=== PATIENT | male | born 1975 | race Caucasian/White ===

== ENCOUNTER 2020-03-30 09:31 | Outpatient (CLI) | payer BC, SELFPAY ==
--- NOTE | 2020-03-30 | EST_ITS ---
Patient Info Name: Nahum Douglass Age: 44 years : 1975 Gender: Male Ht: 74 in Wt: 350 lbs BSA: 2.95 m2 Exam Date: 03/30/2020 11:11 AM Exam Location: [facility] Stress Patient Status: Outpatient Admit Date: 03/30/2020 Staff Ordering Physician: Bita, Maksim Hahn M.D. Attending Provider: Bita, Maksim Hahn M.D. Exercise Technologist: Noa Ma RDCS Exercise Physician: Camden Goldman DO Exam Type: CA stress test treadmill Study Info Indications R06.09 - Other forms of dyspnea A treadmill exercise stress test was performed. Summary 1. 1. Negative Jonnathan exercise stress test for ischemic ST changes by ECG criteria. However, patient achieved only 77% MPHR for age group which reduces sensitivity of the test. 2. 1. Reduced functional capacity, achieving 7 METs of workload. 3. 3. Baseline hypertension with hypertensive response to exercise. 4. 4. Appropriate HR response to exercise. 5. 5. Appropriate HR recovery at 1 minute post exercise. 6. 6. No imaging with stress testing. 7. 7. Patient informed of the above results. Protocol: Jonnathan Stress ECG Details Stage: REST Duration (min): 5 min : 41 sec Speed (mph): 0.0 Grade (%): 0 HR (bpm): 69 SBP (mmHg): 146 DBP (mmHg): 90 METS: --- Stage: REST Duration (min): 14 min : 51 sec Speed (mph): 0.0 Grade (%): 0 HR (bpm): 72 SBP (mmHg): 146 DBP (mmHg): 90 METS: --- Stage: STAGE 1 Duration (min): 1 min : 0 sec Speed (mph): 1.7 Grade (%): 10 HR (bpm): 93 SBP (mmHg): 146 DBP (mmHg): 90 METS: --- Stage: STAGE 1 Duration (min): 2 min : 0 sec Speed (mph): 1.7 Grade (%): 10 HR (bpm): 104 SBP (mmHg): 146 DBP (mmHg): 90 METS: --- Stage: STAGE 1 Duration (min): 3 min : 0 sec Speed (mph): 1.7 Grade (%): 10 HR (bpm): 113 SBP (mmHg): 179 DBP (mmHg): 59 METS: --- Stage: STAGE 2 Duration (min): 1 min : 0 sec Speed (mph): 2.5 Grade (%): 12 HR (bpm): 122 SBP (mmHg): 179 DBP (mmHg): 59 METS: --- Stage: STAGE 2 Duration (min): 2 min : 0 sec Speed (mph): 2.5 Grade (%): 12 HR (bpm): 133 SBP (mmHg): 210 DBP (mmHg): 110 METS: --- Stage: STAGE 2 Duration (min): 2 min : 25 sec Speed (mph): 2.5 Grade (%): 12 HR (bpm): 137 SBP (mmHg): 210 DBP (mmHg): 110 METS: --- Stage: RECOVERY Duration (min): 0 min : 34 sec Speed (mph): 0.0 Grade (%): 0 HR (bpm): 134 SBP (mmHg): 210 DBP (mmHg): 110 METS: --- Stage: RECOVERY Duration (min): 1 min : 34 sec Speed (mph): 0.0 Grade (%): 0 HR (bpm): 120 SBP (mmHg): 200 DBP (mmHg): 82 METS: --- Stage: RECOVERY Duration (min): 2 min : 34 sec Speed (mph): 0.0 Grade (%): 0 HR (bpm): 103 SBP (mmHg): 200 DBP (mmHg): 82 METS: --- Stage: RECOVERY Duration (min): 3 min : 34 sec Speed (mph): 0.0 Grade (%): 0 HR (bpm)
--- NOTE | ~2020-03-30 | XR_ITS ---
EXAMINATION: XR chest 2V DATE: 03/30/2020 09:54 INDICATION: Dyspnea on exertion. TECHNIQUE: Frontal and lateral views of the chest were obtained on 3 radiographs. COMPARISON: None. FINDINGS: The chest demonstrates clear lungs without pneumonia, pleural effusion, or pneumothorax. Th e heart size is normal. IMPRESSION: 1. No acute cardiopulmonary disease. Reviewed, dictated and finalized at location A.
[2020-03-30 12:34] LABS: Alanine Aminotransferase 57 U/L (4-50); Albumin Level 4.4 g/dL (3.5-5.1); Alkaline Phosphatase 50 U/L (38-126); Aspartate Amino Transferase 43 U/L (17-59); Bilirubin,Total 0.6 mg/dL (0.2-1.3); Blood Urea Nitrogen 15 mg/dL (9-20); Calcium 9.3 mg/dL (8.4-10.2); Carbon Dioxide 26 mmol/L (22-30); Chloride 104 mmol/L (98-107); Cholesterol 175 mg/dL (0-200); Estimated Glomerular Filt Rate > 60; Glucose 105 mg/dL (75-110); HDL Direct 43 mg/dL; Sodium 141 mmol/L (137-145); Triglycerides 137 mg/dL (<150)
[2020-03-30 12:46] LABS: LDL Cholesterol Direct 118 mg/dL
== END 2020-03-30 09:32 | disposition home or self-care (01) ==
PROVIDERS: PCP Family Medicine; Visit Provider Family Medicine
DX: R06.09 Other forms of dyspnea (principal)
CPT/HCPCS: 36415; 71046; 80053; 80061; 93017

== ENCOUNTER 2020-04-16 14:04 | Outpatient (CLI) | payer BC, SELFPAY ==
--- NOTE | 2020-04-16 | ECHO_ITS ---
Patient Info Name: Nahum Douglass Age: 44 years : 1975 Gender: Male Ht: 74 in Wt: 350 lbs BSA: 2.95 m2 HR: 67 bpm BP: 150 / 102 mmHg Heart Rhythm: Sinus Rhythm Technical Quality: Good Exam Date: 04/16/2020 2:50 PM Exam Location: [facility]monary Patient Status: Outpatient Admit Date: 04/16/2020 Staff Ordering Physician: Christine, Isela Ward CNP Supervisor Fertilizer Processing: Noa Ma RDCS Attending Provider: Christine, Isela Ward CNP Referring Physician: Christine HU; Exam Type: CA echo doppler color flow Study Info Indications R06.02 - Shortness of breath Complete two-dimensional, color flow and Doppler transthoracic echocardiogram is performed. Summary 1. Left ventricular systolic function is normal, estimated at 65-70%. 2. There is mildly increased left ventricular wall thickness. 3. The left ventricular diastolic function is grade I diastolic dysfunction. 4. There is trace mitral valve regurgitation. 5. There is mild tricuspid valve regurgitation. 6. Mild pulmonary hypertension, estimated pulmonary arterial systolic pressure is 37 mmHg. Left Ventricle Left ventricular chamber dimension is normal. Left ventricular systolic function is normal, estimated at 65-70%. There is mildly increased left ventricular wall thickness. The left ventricular diastolic function is grade I diastolic dysfunction. Right Ventricle Right ventricular chamber dimension is normal. Right ventricular systolic function is normal. Left Atria Left atrial chamber dimension is normal. Right Atria Right atrial chamber dimension is normal. Aortic Valve The aortic valve is probable trileaflet. There is no aortic valve stenosis. There is trace aortic valve regurgitation. Pulmonic Valve The pulmonic valve is not well visualized. There is trace pulmonic regurgitation. Mitral Valve The mitral valve has thickened leaflets. There is trace mitral valve regurgitation. Tricuspid Valve The tricuspid valve leaflets are normal. There is mild tricuspid valve regurgitation. Mild pulmonary hypertension, estimated pulmonary arterial systolic pressure is 37 mmHg. Pericardium/Pleural The pericardium appears normal. There is no pericardial effusion. Inferior Vena Cava Normal inferior vena cava with <50% collapse upon inspiration consistent with normal right atrial pressure, 5 mmHg. Aorta The aortic root size at the sinus of Valsalva is normal. Left Ventricular Outflow Tract Name Value Normal LVOT 2D LVOT Diameter 2.1 cm LVOT Doppler LVOT Peak Gradient 9 mmHg LVOT Mean Gradient 5 mmHg LVOT VTI 30 cm LVOT VTI/AV VTI Ratio 1.0 LVOT Stroke Volume 101 ml LVOT CO 6.8 l/min LVOT CI 2.3 l/min/m2 Pulmonic Valve Name Value Normal
== END 2020-04-16 14:05 | disposition home or self-care (01) ==
PROVIDERS: PCP Family Medicine; Visit Provider Nurse Practitioner Family
DX: I08.1 Rheumatic disorders of both mitral and tricuspid valves (principal)
CPT/HCPCS: 93306

== ENCOUNTER 2021-04-10 15:22 | Emergency (ER) | payer BC, SELFPAY ==
[2021-04-10] VITALS (17 sets, daily range): BP systolic 132–178; BP diastolic 70–122; PULSE 74–87; RESP 10–26; TEMP 36.1–37; O2SAT 94–98
--- NOTE | ~2021-04-10 | CT_ITS ---
EXAMINATION: CTA chest PE protocol EXAM DATE: 04/10/2021 20:27 INDICATION: SOB, CP, elevated dimer. TECHNIQUE: Spiral CTA of the chest (pulmonary arteries) was performed with 100 cc Omnipaque 350 intr avenous contrast injection. Images were acquired during the pulmonary arterial phase. Coronal maxi mum intensity projection 3D-reconstructions were created by the technologist on dedicated workstation . Axial, coronal and sagittal reformatted images were reviewed. The dose-length product (DLP) for t his examination was 965.11 mGy-cm. The exposure was tailored according to patient size (auto mA exp osure control), and iterative reconstruction (ASIR) was used as additional dose reduction technique. There is no prior study for comparison. FINDINGS: The aorta has higher density than the pulmonary arteries indicating that the triggering diana us likely had adequate density but then there was drop in enhancement of the pulmonary arteries at sc an time for reasons unclear. There are no pulmonary emboli in the 1st through 3rd order (central and interlobar) pulmonary arteries. Suboptimal opacification and some loss of attenuation in the segmenta l pulmonary arteries from respiratory motion, not confidently evaluated. No intraluminal filling defe cts identified. No thoracic aortic dissection. There is a 5 mm left upper lobe nodule on axial image 25. There are no pleural or pericardial effusio ns. Tracheobronchial tree is patent. There is no mediastinal, hilar or axillary lymphadenopathy. There is no pneumothorax. Heart normal in size. No evidence of coronary arterial calcification. There is hepatic steatosis. There is right adrenal gland lesion measuring 1.2 cm, probably an adeno ma. There is mild thoracic spondylosis without osteoblastic or osteolytic lesions identified. IMPRESSION: 1. No central pulmonary emboli. Suboptimal segmental evaluation. If there is high clinical suspicion of pulmonary embolism, options include administering 2nd dose of contrast which may or may not impro ve segmental evaluation, or obtaining follow-up nuclear medicine perfusion scan. 2. Small left upper lobe pleural-based nodule most likely granuloma. Consider 6-12 month follow-up c hest CT without contrast. 3. Hepatic steatosis. Reviewed, dictated and finalized at location A. IMPRESSION: 1. No central pulmonary emboli. Suboptimal segmental evaluation. If there is h igh clinical suspicion of pulmonary embolism, options include administering 2nd dose of contrast which may or may not improve segmental evaluation, or obtaini ng follow-up nuclear medicine perfusion scan. 2. Small left upper lobe pleural-based nodule most likely granuloma. Consider 6-12 month follow-up chest CT without contrast. 3. Hepatic steatosis.
--- NOTE | ~2021-04-10 | XR_ITS ---
EXAMINATION: XR chest 2V DATE: 04/10/2021 16:32 INDICATION: Chest pain and shortness of breath TECHNIQUE: PA and lateral views of the chest are obtained. COMPARISON: 03/30/2020 FINDINGS: The lungs are free of acute opacities. There is no pleural effusion or pneumothorax. The ca rdiomediastinal silhouette is normal. The visualized bones and soft tissues are unremarkable. IMPRESSION: 1. No acute cardiopulmonary abnormality. Reviewed, dictated and finalized at location B.
--- NOTE | 2021-04-10 15:23 | ECG_ITS ---
Measurements Intervals [place] Rate: 80 P: 22 OR: 132 QRS: 44 QRSD: 90 T: 45 QT: 372 QTc: 430 Interpretive Statements SINUS RHYTHM EARLY PRECORDIAL R/S TRANSITION NONSPECIFIC T-WAVE ABNORMALITY- INFERIOR LEADS BASELINE ARTIFACT- III, AVF BORDERLINE ECG Electronically Signed On 04-10-2021 15:31:14 CDT by Camden Goldman D.O.
[2021-04-10 16:03] LABS: Basophils Absolute Auto 0.1 K/mm3 (0.0-0.1); Basophils Percent Auto 0.7 % (0.2-1.2); Eosinophils Absolute Auto 0.2 K/mm3 (0-0.3); Eosinophils Percent Auto 2.2 % (0-4.4); Hematocrit 43.9 % (42.0-52.0); Hemoglobin 14.7 g/dL (14.0-18.0); Immature Granulocyte Absolute 0.03 K/mm3 (0.00-0.031); Immature Granulocyte Percent A 0.4 % (0-0.5); Lymphocytes Absolute Auto 1.98 K/mm3 (0.9-3.2); Lymphocytes Percent Auto 26.9 % (18.3-44.2); Mean Corpuscular HGB Conc 33.5 g/dl (32-36); Mean Corpuscular Hemoglobin 29.9 pg (26-34); Mean Corpuscular Volume 89.2 fl (80-100); Mean Platelet Volume 10.2 fl (7.4-10.4); Monocytes Absolute Auto 0.5 K/mm3 (0.1-0.6); Monocytes Percent Auto 7.1 % (2.6-8.5); Neutrophils Absolute Auto 4.6 K/mm3 (1.3-6.7); Neutrophils Percent Auto 62.7 % (45.5-73.1); Platelet Count Result 307 k/mm3 (150-375); Red Blood Count 4.92 M/mm3 (4.6-6.20); Red Cell Distribution Width 13.7 % (11.5-14.5); White Blood Count 7.4 K/mm3 (4.5-10.0)
[2021-04-10 16:12] LABS: INR 0.9; Prothrombin Time 12.2 Seconds (11.1-14.7)
[2021-04-10 16:14] LABS: Anion Gap 13 mmol/L (8-16); Blood Urea Nitrogen 12 mg/dL (9-20); Calcium 9.9 mg/dL (8.4-10.2); Carbon Dioxide 28 mmol/L (22-30); Chloride 98 mmol/L (98-107); Estimated CRCL calculation 142 ml/min; Estimated Glomerular Filt Rate > 60; Glucose 119 mg/dL (65-110); Potassium 3.3 mmol/L (3.4-5.0); Sodium 139 mmol/L (137-145)
[2021-04-10 16:25] LABS: Troponin I < 0.012 ng/mL (0.000-0.034)
--- NOTE | 2021-04-10 18:35 | PC.NURSE ---
TYRONE Salcedo at bedside
[2021-04-10 18:41] LABS: Troponin I < 0.012 ng/mL (0.000-0.034)
--- NOTE | 2021-04-10 18:42 | ED.CHESTPAIN ---
HPI - Chest Pain General Chief Complaint: Chest Pain Stated Complaint: cp Time Seen by Provider: 04/10/21 18:26 Source: patient Mode of arrival: ambulatory Limitations: no limitations History of Present Illness HPI narrative: This is a 45 year old male that presents to the ER for an episode of chest pain today. Reports he was driving in the car. He started to feel shaky. This was followed by a pressure on his chest. Associated with shortness of breath and nausea. He called EMS. Was given aspirin and a dose of nitro. His discomfort subsided after about an hour. Denies any current symptoms. Denies lower extremity edema. Related Data Home Medications Medication Instructions Recorded Confirmed amlodipine DAILY 04/10/21 fenofibrate mg DAILY 04/10/21 folic acid DAILY 04/10/21 lansoprazole DAILY 04/10/21 losartan-hydrochlorothiazide DAILY 04/10/21 meloxicam DAILY 04/10/21 methotrexate sodium WEEKLY 04/10/21 Allergies Allergy/AdvReac Type Severity Reaction Status Date / Time No Known Allergies Allergy Verified 04/10/21 18:41 Review of Systems Review of Systems: Narrative: CONSTITUTIONAL: Denies fever CARDIOVASCULAR: Reports chest pain. Denies palpitations, or edema. RESPIRATORY: Reports dyspnea. GASTROINTESTINAL: Reports nausea All systems reviewed & are unremarkable except as noted in HPI and below PMFSH Past Medical History Medical History (Updated 04/10/21 @ 21:15 by Denisse Zhang PA-C) History of hyperlipidemia History of hypertension History of rheumatoid arthritis Exam Narrative: Exam Narrative: GENERAL: Well-appearing, obese, and in no acute distress. HEAD: Normocephalic, atraumatic. EYES: EOMI. ENT: Nares clear, no rhinorrhea or epistaxis. Mucous membranes moist. Oropharynx without tonsillar hypertrophy exudate or other lesions. Bilateral TMs pearly pickens non-bulging NECK: Supple. No adenopathy or masses. No carotid bruits or JVD CHEST: Clear to auscultation. No respiratory distress. No wheezes rales or rhonchi HEART: Regular rate and rhythm. No murmur heard. Normal peripheral pulses. EXTREMITIES: Normal range of motion. No edema. SKIN: Warm, dry, no rash. NEURO: No focal deficits. Alert and oriented x3. PSYCH: Normal mood and affect Course Vital Signs Vital signs: Vital Signs Temperature 96.9 F L 04/10/21 15:24 Pulse Rate 79 04/10/21 15:24 Respiratory Rate 16 04/10/21 15:24 Blood Pressure 132/81 04/10/21 15:24 Pulse Oximetry 96 04/10/21 15:24 Temperature 97.9 F 04/10/21 18:30 Pulse Rate 82 04/10/21 18:53 Respiratory Rate 15 04/10/21 18:53 Blood Pressure 178/103 H 04/10/21 18:53 Pulse Oximetry 96 04/10/21 18:53 MDM - Chest Pain MDM Narrative Medical decision making narrative: Patient presents to the emergency department for an episode of chest pain today. This lasted for about an hour. Had resolved by the time I saw the patient. He is afebrile and nontoxic-appearing. His vitals are stable. CBC without concerning findings. Metabolic panel with mild hypokalemia with potassium of 3.3. Patient given dose of potassium in the ED. EKG with nonspecific ST changes. Baseline at there are troponin are negative. Patient has had no further chest pain while in the ED. Chest x-ray is without acute cardiopulmonary abnormality. D-dimer was elevated, so CTA of the chest was obtained. This was without evidence of central pulmonary emboli. There was suboptimal segmental evaluation. Options include administering second dose of contrast which may or may not improve segmental evaluation or obtaining follow-up nuclear medicine scan. Also shows a small left upper lobe pleural-based nodule, most likely granuloma. Follow-up CT scan of the chest without contrast recommended. Shows hepatic steatosis. Spoke with Dr. Seaman about patient and workup. Feels patient is appropriate for further outpatient evaluation. His office will contact the patient in the morning fo
[2021-04-10 19:23] LABS: Alanine Aminotransferase 49 U/L (4-50); Albumin Level 4.6 g/dL (3.5-5.1); Alkaline Phosphatase 57 U/L (38-126); Aspartate Amino Transferase 42 U/L (17-59); Bilirubin,Total 0.7 mg/dL (0.2-1.3); Lipase 89 U/L (23-300)
[2021-04-10 19:46] LABS: D Dimer 1.38 ug/mL (<0.48)
[2021-04-10 20:42] LABS: NT Pro B Type Natriuretic Pept 19 pg/mL (5-100)
[2021-04-10] MEDS: POTASSIUM CHLORIDE 20 MEQ TABLET 40 MEQ PO (21:16)
== END 2021-04-10 21:30 | disposition home or self-care (01) ==
PROVIDERS: Emergency Medicine; Physician Assistant; Emergency Provider Emergency Medicine; PCP Family Medicine
DX: E87.6 Hypokalemia (principal); R91.1 Solitary pulmonary nodule; K76.0 Fatty (change of) liver, not elsewhere classified; R07.9 Chest pain, unspecified
CPT/HCPCS: 36415; 71046; 71275; 80048; 80076; 83690; 83880; 84484; 85025; 85380; 85610; 85730; 93005; 99284; A9270; Q9967

== ENCOUNTER → 2021-08-30 03:44 | Outpatient (CLI) | payer BC, SELFPAY ==
[2021-08-30 19:26] LABS: SARS-CoV-2 RNA PCR Negative
== END ==
PROVIDERS: PCP Family Medicine; Visit Provider Internal Medicine Gastroenterology
DX: Z01.812 Encounter for preprocedural laboratory examination (principal); Z20.822 Contact with and (suspected) exposure to COVID-19
CPT/HCPCS: C9803; U0003; U0005

== ENCOUNTER 2021-09-02 01:40 | Day surgery (SDC) | payer BC, SELFPAY ==
[2021-08-22 12:38] VITALS: BMI 51.2
[2021-09-02 07:43] VITALS: BP 156/98; PULSE 79; RESP 20; TEMP 37.2; O2SAT 97
[2021-09-02] MEDS: LACTATED RINGERS 1,000 ML 150 ML IV CONT (07:52)
--- NOTE | 2021-09-02 07:55 | WPDANESEPPF ---
Anes - Initial Pre Proc Eval Procedure: Operation Date: 09/02/21 08:30 Proposed Procedures p Screening Colonoscopy - Jeff Hua MD Date/Time: 09/02/21 07:55 Surgeon: Jeff Hua MD Pre Op Diagnosis: neoplasm screening Patient Data Age: 46 Gender: M Height: 1.88 m Weight: 170.1 kg Last Vital Signs Temp 37.2 C 09/02/21 07:43 Pulse 79 09/02/21 07:43 Resp 20 09/02/21 07:43 BP 156/98 H 09/02/21 07:43 Pulse Ox 97 09/02/21 07:43 Allergies Allergy/AdvReac Type Severity Reaction Status Date / Time No Known Allergies Allergy Verified 09/02/21 07:42 Home Medications Medication Instructions Recorded Confirmed Type amlodipine 5 mg PO DAILY 04/10/21 08/22/21 History fenofibrate 160 mg PO DAILY 04/10/21 08/22/21 History folic acid 1 mg PO DAILY 04/10/21 08/22/21 History lansoprazole 30 mg PO DAILY 04/10/21 08/22/21 History meloxicam 15 mg PO DAILY 04/10/21 08/22/21 History methotrexate sodium 2.5 mg PO WEEKLY 04/10/21 08/22/21 History losartan-hydrochlorothiazide 1 tablet PO DAILY 08/22/21 08/22/21 History Patient hx anesthesia problems: none Family hx anesthesia problems: none Results Review: All pre-operative results and documents have been reviewed as part of the pre-operative evaluation. [facility], [facility] Past Medical History Medical History (Updated 09/02/21 @ 07:55 by Matt Brar MD) History of hyperlipidemia History of hypertension History of rheumatoid arthritis Morbid obesity Social History Social History Smoking status: Current every day smoker Tobacco type: smokeless tobacco Smokeless tobacco user: chewing tobacco Living arrangements: alone Spiritual care concerns: No Anes - Eval Final PreProcedure Day of Procedure 09/02/21 07:55 Patient weight: morbidly obese Heart: regular rate and rhythm Lungs: clear to auscultation Airway: Mallampati scale class II Neurological: alert and oriented Last oral intake: >/= 8 hours ASA classification: III Emergent: no Anesthetic plan: proceed Anesthesia type and monitoring: general GIVS and standard monitoring Results Review: All pre-operative results and documents have been reviewed as part of the pre-operative evaluation. Informed Consent: The patient's anesthetic plan and its attendant risks and benefits were discussed with the patient/family/POA. Questions were solicited and answers provided to the satisfaction of the patient/family/POA.
--- NOTE | 2021-09-02 08:23 | PM.HPGS ---
History of Present Illness History of Present Illness Consent: Risks, benefits, and alternatives have been discussed and questions answered. Patient agrees to proceed with procedure. Chief complaint: neoplasm screening Narrative: Nahum Douglass is a 46 year old male here for first screening colonoscopy Review of Systems Constitutional: Constitutional: Denies headache(s) and Denies weakness Eyes: Eyes: Denies blurry vision ENT: Reports Normal hearing present, Denies headache(s) and Denies neck pain Cardiovascular: Cardiovascular: Denies chest pain and Denies dyspnea Respiratory: Respiratory: Denies dyspnea Gastrointestinal: Gastrointestinal: Reports no additional gastrointestinal complaints Genitourinary: Genitourinary: Denies dysuria Musculoskeletal: Musculoskeletal: Denies neck pain Integumentary/Breasts: Skin/Breast: Denies dry skin Neurologic: Reports Normal hearing present, Denies headache(s) and Denies weakness Psychiatric: Psychiatric: Denies anxiety Endocrine: Endocrine: Denies change in body appearance Hematologic/Lymphatic: Hematologic/Lymphatic: Denies easy bleeding Allergic/Immunologic: Allergic/Immunologic: Denies urticaria ON LICENSE OF [facility] Past Medical History Medical History (Updated 09/02/21 @ 08:24 by Jeff Hua MD) Colon cancer screening History of hyperlipidemia History of hypertension History of rheumatoid arthritis Morbid obesity Social History Social History Smoking status: Current every day smoker Tobacco type: smokeless tobacco Smokeless tobacco user: chewing tobacco Living arrangements: alone Spiritual care concerns: No Meds Home Medications and Allergies Home Medications Medication Instructions Recorded Confirmed Type amlodipine 5 mg PO DAILY 04/10/21 08/22/21 History fenofibrate 160 mg PO DAILY 04/10/21 08/22/21 History folic acid 1 mg PO DAILY 04/10/21 08/22/21 History lansoprazole 30 mg PO DAILY 04/10/21 08/22/21 History meloxicam 15 mg PO DAILY 04/10/21 08/22/21 History methotrexate sodium 2.5 mg PO WEEKLY 04/10/21 08/22/21 History losartan-hydrochlorothiazide 1 tablet PO DAILY 08/22/21 08/22/21 History Allergies Allergy/AdvReac Type Severity Reaction Status Date / Time No Known Allergies Allergy Verified 09/02/21 07:42 Vital Signs Vital Signs - 24 hr 09/02/21 07:43 Temperature 98.9 F Pulse Rate 79 Respiratory Rate 20 Blood Pressure 156/98 H Pulse Oximetry 97 Exam Const: General: comfortable and no acute distress HENMT: General nose exam: Normal nares present Eyes: General: appearance normal, both eyes and all related structures Neck: Neck: no JVD Resp: Auscultation: clear to auscultation bilaterally Cardio: Rate: regular rate Rhythm: regular rhythm GI: Inspection: non-distended GI Palp: Yes Soft to palpation Skin: General skin exam: normal color Neuro: General: gait normal Speech: normal speech Extrem: General: normal to inspection Psych: Mental Status: mental status grossly normal Assessment and Plan Assessment and plan (1) Colon cancer screening: Code(s): Z12.11 - Encounter for screening for malignant neoplasm of colon Status: Acute Assessment and Plan: colonoscopy
[2021-09-02 08:47] VITALS: BP 134/76; PULSE 83; RESP 28; O2SAT 97
[2021-09-02 08:57] VITALS: BP 141/80; PULSE 78; RESP 15; O2SAT 98
[2021-09-02 09:07] VITALS: BP 137/75; PULSE 75; RESP 18; O2SAT 98
== END 2021-09-02 09:18 | disposition home or self-care (01) ==
PROVIDERS: PCP Family Medicine; Visit Provider Internal Medicine Gastroenterology
PROC: 0DJD8ZZ Inspection of Lower Intestinal Tract, Via Natural or Artificial Opening Endoscopic (ICD-10-PCS; CPT 45378; principal; 2021-09-02 08:30)
DX: Z12.11 Encounter for screening for malignant neoplasm of colon (principal); K63.5 Polyp of colon; K57.30 Diverticulosis of large intestine without perforation or abscess without bleeding; I10 Essential (primary) hypertension; E78.5 Hyperlipidemia, unspecified; M06.9 Rheumatoid arthritis, unspecified; F17.220 Nicotine dependence, chewing tobacco, uncomplicated
CPT/HCPCS: 45380; 88305; C9803; J2704; J7120; U0003; U0005